=== PATIENT | female | born 1965 | race Caucasian/White ===

== ENCOUNTER 2021-12-20 14:07 | Outpatient (CLI) | payer BC, SELFPAY ==
--- NOTE | 2021-12-20 14:30 | MR_ITS ---
[address] [address] Phone:?[phone] Fax:?[phone] Referring Physician Information: Ariel Munoz M.D. [address] [facility] [address] Phone:?[phone] Fax:?[phone] Patient:?Angie Mcdonald D.O.B:?1965 Sex:?Female Phone:?[phone] [facility] MRN:?[id number] Exam Date:?12/20/2021 ? EXAM: MR LUMBAR SPINE WITHOUT CONTRAST CLINICAL INFORMATION: Lumbar radiculopathy. TECHNICAL INFORMATION: T1 and T2 FSE and STIR sagittal thin sections through the lumbar spine with T1 and T2 FSE axial sections at selected levels. INTERPRETATION: 5 lumbar levels with transitional lumbosacral segment designated L5. Conus medullaris terminates appropriately and has normal signal. No evidence of arachnoid disease or abnormal neural development. Vertebral body heights are maintained. Paraspinal soft tissues appear normal. Visualized sacroiliac joints and hip joints are grossly normal. L5-S1: Transitional segment with developmentally small disc and facet joints. Bilateral lumbosacral accessory articulations with right-sided degeneration. No central or foraminal stenosis. L4-5: Severe disc degeneration with Modic T2 signal, broad-based left asymmetric 5 mm herniation and osteophyte encroaching left greater than right L5 nerve roots, mild right facet degeneration. No central stenosis. Moderate right foraminal stenosis. L3-4: Moderate disc degeneration, disc bulge and right paracentral 3 mm disc protrusion mildly encroaching the right L4 nerve root, moderate left greater than right facet degeneration. Mild central stenosis. No foraminal stenosis. L2-3: Moderate to severe left asymmetric disc degeneration with mild left-sided Modic 1 signal, dorsal disc bulge, normal facet joints. No central stenosis. Mild left foraminal stenosis. T12-L1, L1-2: No central or foraminal stenosis. T11-12: Moderate disc degeneration with Modic T2 signal, shallow dorsal disc bulge. No central or foraminal stenosis. T10-11: No central or foraminal stenosis. CONCLUSION: Transitional lumbosacral segment designated L5 with the following notable findings: 1. L4-5 broad-based left asymmetric 5 mm AP disc herniation encroaches left greater than right L5 nerve roots, also moderate right foraminal stenosis. 2. L3-4 right paracentral 3 mm protrusion mildly encroaches right L4. 3. Left asymmetric Modic 1 signal at L2-3. Electronically signed on 12/21/2021 4:14:00 PM by Mamadou Barahona M.D.
== END 2021-12-20 14:08 | disposition home or self-care (01) ==
PROVIDERS: PCP Physician Assistant Medical; Visit Provider Family Medicine
DX: M51.36 Other intervertebral disc degeneration, lumbar region (principal); M54.16 Radiculopathy, lumbar region; M51.26 Other intervertebral disc displacement, lumbar region
CPT/HCPCS: 72148